=== PATIENT | male | born 1955 | race Two or more races ===

== ENCOUNTER 2020-03-21 16:54 | Emergency (ER) | payer OTHER ==
[~2020-03-21] VITALS: Ht 175.3 cm; Wt 81.6 kg
[2020-03-21] MEDS ORDERED: VITAMIN D3125 MC1 PO (18:00)
[2020-03-21] MEDS ORDERED: ECOTRIN325 M1 PO (18:01)
[2020-03-21] MEDS ORDERED: LOTREL 5-40 MG1 EACH PO (18:01)
[2020-03-21] MEDS ORDERED: LIPITOR20 MG PO (18:02)
[2020-03-21] MEDS ORDERED: GLUMETZA500 MG PO (18:02)
[2020-03-21] MEDS ORDERED: PREVACID30 M1 PO (18:02)
[2020-03-21] MEDS ORDERED: FOSAMAX PLUS D1 EACH PO (18:03)
[2020-03-21] MEDS ORDERED: BENTYL10 MG/1 ML IM (18:03)
[2020-03-21] MEDS ORDERED: IMODIUM A-1 MG/7.5 M PO (18:03)
[2020-03-21] MEDS ORDERED: LEXAPRO20 MG PO (18:04)
[2020-03-21] MEDS ORDERED: TRAZODONE HCL150 MG PO (18:04)
[2020-03-21] MEDS ORDERED: CALTRATE 600+D1 EAC1 PO (18:05)
[2020-03-21] MEDS ORDERED: CENTRUM ADULTS1 EACH (18:05)
[2020-03-21] MEDS ORDERED: VITAMIN D3-ALO1 EACH PO (22:16)
[2020-03-21] MEDS ORDERED: ZINC SULFATE220 M2 PO (22:16)
[2020-03-21] MEDS ORDERED: ACETAMINOPHEN650 M2 PO (22:16)
[2020-03-21] MEDS ORDERED: MELATONIN10 MG PO (22:16)
[2020-03-21] MEDS ORDERED: VITAMIN C WIT1000 MG PO (22:16)
[2020-03-21] MEDS ORDERED: MEDROLPACK PO (22:16)
[2020-03-21] MEDS ORDERED: IVERMECTIN3 MG PO (22:16)
[2020-03-21] MEDS ORDERED: AZITHROMYCIN250 MG PO (22:16)
== END 2020-03-21 22:25 | disposition home or self-care (01) ==
LOC: ER 16:54
DX: U07.1 COVID-19 (principal); B33.8 Other specified viral diseases